=== PATIENT | male | born 2000 | race Caucasian/White ===

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

== ENCOUNTER 2022-07-03 05:40 | Emergency (ER) | payer BC ==
[~2022-07-03] VITALS: Ht 185.4 cm; Wt 95.5 kg
[2022-07-03 05:48] VITALS: TEMP 98.1
[2022-07-03] MEDS ORDERED: ALDACTONE50 MG PO (06:39)
[2022-07-03 06:47] LABS: BASO % 0.3 % (0.0-2.0); EOS # 0.1 K/mm3 (0.0-0.7); GRAN % 64.2 % (42.2-75.2); HEMATOCRIT 42.1 % (42.0-52.0); LYMPH # 2.2 K/mm3 (1.2-3.4); LYMPH % 28.9 % (20.0-51.0); MEAN CELL VOLUME 89 fl (80.0-100.0); MEAN CORPUSCULAR HEMOGLOBIN 30 pg (27-31); MEAN CORPUSCULAR HGB CONC 33 g/dl (33.0-37.0); MEAN PLATELET VOLUME 10.3 fl (7.4-10.4); MONO # 0.4 K/mm3 (0.1-0.6); MONO % 5.3 % (1.7-9.3); PLATELET COUNT 294 K/mm3 (130-400); RED BLOOD COUNT 4.72 M/mm3 (4.20-5.60); REDCELL DISTRIBUTION WIDTH-CV 12.2 % (11.5-14.5)
[2022-07-03] MEDS ORDERED: NORCO 325 MG-51 TAB PO (07:01)
[2022-07-03 07:04] LABS: ALBUMIN 4.3 gm/dL (3.5-5.0); BILIRUBIN,TOTAL 0.7 mg/dL (0.2-1.2); CALCIUM 9.9 mg/dL (8.4-10.2); CREATININE, serum 0.82 mg/dL (0.72-1.25); POTASSIUM 3.7 mmol/L (3.5-4.5); TOTAL PROTEIN 7.4 gm/dL (6.2-8.1)
[2022-07-03 07:09] LABS: TROPONIN-I 0.013 ng/mL (0.00-0.033)
[2022-07-03 08:00] VITALS: BP 135/93; PULSE 68
== END 2022-07-03 08:29 | disposition home or self-care (01) ==
LOC: COL.ER 05:40
PROVIDERS: Personal Emergency Response Attendant
DX: R07.9 Chest pain, unspecified (principal); R53.1 Weakness
CPT/HCPCS: J2270; J2405